=== PATIENT | male | born 1985 | race Caucasian/White ===

== ENCOUNTER 2018-10-04 18:22 | Emergency (ER) | payer BC ==
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
== END 2018-10-04 18:43 | disposition home or self-care (01) ==
LOC: MW.ED 18:22
DX: S50.811A Abrasion of right forearm, initial encounter (principal); V49.9XXA Car occupant (driver) (passenger) injured in unspecified traffic accident, initial encounter
CPT/HCPCS: 99282; 99283

== ENCOUNTER 2022-01-25 12:05 | Emergency (ER) | payer BC, OTHER ==
[2022-01-25] MEDS ORDERED: Iopamidol 755 Mg/ML 100 ML Bottle IV ONE (14:36)
[2022-01-25 16:32] LABS: CARBON DIOXIDE,CO2 28.1 mmol/L (21.0-32.0); POTASSIUM,K 4.2 mmol/L (3.5-5.1)
[2022-01-25] MEDS: Sulfamethoxazole/Trimethoprim 800-160 MG Tab PO ONE (18:52)
== END 2022-01-25 19:02 | disposition home or self-care (01) ==
LOC: MW.ED 12:05
DX: N30.90 Cystitis, unspecified without hematuria (principal); Z88.6 Allergy status to analgesic agent; Z79.899 Other long term (current) drug therapy
CPT/HCPCS: 36415; 51798; 74178; 80048; 81001; 85025; 99284; A9270; Q9967; 99283